=== PATIENT | male | born 1980 | race American Indian/Alaskan Native ===

== ENCOUNTER 2021-03-16 13:37 | Emergency (ER) | payer SELFPAY ==
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
[2021-03-16] MEDS ORDERED: SULFAMETHOXAZOLE/TRIMETHOPRIM 800/160MG DS TAB PO ONE (15:15)
[2021-03-16] MEDS ORDERED: cephALEXin 500 MG CAP PO ONE (15:15)
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
[2021-03-16 15:57] VITALS: BP 131/66
== END 2021-03-16 15:56 | disposition home or self-care (01) ==
LOC: ED 13:37
DX: L03.115 Cellulitis of right lower limb (principal); Z79.899 Other long term (current) drug therapy
CPT/HCPCS: 99282